=== PATIENT | female | born 2000 | race Caucasian/White ===

== ENCOUNTER 2021-02-26 19:00 | Emergency (ER) | payer MEDICAID, SELFPAY ==
[2021-02-26 19:02] VITALS: BP 123/95; PULSE 87; RESP 14; TEMP 36.6; O2SAT 98; BMI 22.4
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
--- NOTE | 2021-02-26 20:10 | RAD_ITS ---
EXAM: XR STERNUM, 2 OR MORE VIEWS : 1999 CLINICAL INDICATION: trauma TECHNIQUE: Lateral and oblique views of the sternum. This report was created using [employer] report generation technology. COMPARISON: None. FINDINGS: BONES/JOINTS: No acute fracture. No subluxation. No sclerotic or destructive changes observed. SOFT TISSUES: Unremarkable. No soft tissue swelling or gas. No radiopaque foreign body. RAD/Sternum min 2 Views IMPRESSION: Negative sternum. at 2045 Reported and signed by: Trey Martin MD Electronically Signed: Trey Martin MD at 20:44 EDT Tel , Service support ,
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
[2021-02-26] MEDS: Naproxen 250 MG Tablet PO (22:10)
== END 2021-02-26 22:13 | disposition home or self-care (01) ==
PROVIDERS: Emergency Provider Emergency Medicine
DX: S29.9XXA Unspecified injury of thorax, initial encounter (principal); F17.210 Nicotine dependence, cigarettes, uncomplicated; V29.3XXA Motorcycle rider (driver) (passenger) injured in unspecified nontraffic accident, initial encounter
CPT/HCPCS: 71045; 71120; 99284

== ENCOUNTER 2021-05-06 15:17 | Emergency (ER) | payer MEDICAID, SELFPAY ==
[2021-05-06 15:18] VITALS: BP 126/98; PULSE 98; RESP 16; TEMP 36.1; O2SAT 100; BMI 18.1
--- NOTE | 2021-05-06 15:34 | ED.VIS.DENTA ---
HPI History of Present Illness Chief Complaint: Dental Informant: patient Narrative Narrative: Patient complains of dental pain in multiple areas. This has been going off and on for a month but it just keeps getting worse. It keeps her up at night sometimes. No drainage or bad taste. No trouble swallowing. No fevers chills or systemic symptoms. She has not seen anyone for this before. Cold makes it a bit worse. PFSH PFSH Medical History Anxiety Depression Smoker Home Medications naproxen 500 mg PO BID #20 tab 05/06/21 [Rx Last Taken Unknown] penicillin V potassium 500 mg PO 4X/DAY #40 tab 05/06/21 [Rx Last Taken Unknown] Allergy/AdvReac Type Severity Reaction Status Date / Time No Known Allergies Allergy Verified 05/06/21 15:18 Social History Smoking Status: Current every day smoker tobacco type: cigarettes ROS ROS ED Constitutional Constitutional ED: Denies chills or fever(s) Eyes Eyes: Denies change in vision ENT ENT ED: Reports other Details: See history of present illness. ; Denies ear pain, rhinorrhea or sore throat Cardiovascular Cardiovascular: Denies chest pain, palpitations or racing heartbeat Respiratory/Chest Respiratory/Chest: Denies cough or dyspnea Gastrointestinal Gastrointestinal: Denies nausea or vomiting Musculoskeletal Musculoskeletal: Denies neck pain Integumentary Denies abscess or rash Neurologic Neurologic: Denies headache(s) Psychiatric Psychiatric: Reports anxiety and depression Hematologic/Lymphatic Hematologic/Lymphatic: Denies easy bleeding or easy bruising Allergic/Immunologic Allergic/Immunologic ED: Reports other Details: See history of present illness. ; Denies mouth swelling or tongue swelling EXAM Physical Exam Const Vital Signs: 05/06/21 15:18 Temperature 96.9 F L Temperature Source Temporal Pulse Rate 98 Respiratory Rate 16 Blood Pressure 126/98 H Blood Pressure Mean 107 Pulse Ox 100 Oxygen Delivery Method Room Air Patient is tearful. Positive well nourished and well developed General Appearance ED: well developed HEENT HEENT Narrative: No external swelling seen. Lips are normal. Tongue is normal. There is no Ludewig's angina. Uvula is normal. Voice is normal. She has multiple teeth on upper and lower jaws right and left that have cavities. But there is no visible drainable abscess. Negative for trauma or tenderness Eyes PERRL and EOMs intact bilaterally General Eye ED: Negative for scleral icterus Neck no lymphadenopathy and no JVD Resp normal respiratory effort Neuro Sensorium / Orientation: alert Psych mental status grossly normal Mood & Affect: tearful Skin no rashes or lesions noted and no wounds MDM MDM MDM Narrative Medical decision making narrative: Patient is complaining of a lot of pain. I will give her a shot of Toradol. We will get her started on antibiotics. We will add Naprosyn. She is encouraged to call dentist for follow-up. Discharge Plan Triage Chief Complaint: Dental ED Provider: Ganga Maharaj Dx/Rx/DC Orders Clinical Impression: Pain due to dental caries Instructions: ED Dental Pain Prescriptions: New penicillin V potassium 500 MG tablet 500 mg PO 4X/DAY Qty: 40 RF: 0 naproxen 500 MG tablet 500 mg PO BID Qty: 20 RF: 0 Primary Care Provider: Care Physician,No Primary Referrals: Care Physician,No Primary [Primary Care Provider] - Dentist,Your [STAFF PHYSICIAN] - As soon as possible Disposition Disposition: Home, Self Care
[2021-05-06] MEDS: Ketorolac 15 MG/ML Vial IM (15:58)
[2021-05-06] MEDS: Penicillin Vk 250 MG Tablet 500 MG PO (15:59)
[2021-05-06 16:10] VITALS: PULSE 75; RESP 14; O2SAT 98
== END 2021-05-06 16:11 | disposition home or self-care (01) ==
PROVIDERS: Emergency Provider Emergency Medicine
DX: K02.9 Dental caries, unspecified (principal); F17.210 Nicotine dependence, cigarettes, uncomplicated
CPT/HCPCS: 64999; 96372; 99283

== ENCOUNTER 2022-11-19 01:04 | Emergency (ER) | payer MEDICAID, SELFPAY ==
[2022-11-19 01:05] VITALS: BP 97/78; PULSE 101; RESP 16; TEMP 36.6; BMI 19.9
--- NOTE | 2022-11-19 01:19 | EDS_ITS ---
HPI History of Present Illness Chief Complaint: Overdose Informant: patient Narrative Narrative: Patient states she was using methamphetamines recreationally. She injected in her right arm. She states from how she felt she thinks there was fentanyl in it. She used to use opioids but really has not used those for over 2 years. Evidently other people called EMS gave her Narcan and now she is awake and alert. She is not having any complaints at this time. She states she still feels a little bit tired but no trouble breathing or chest pain. She was not trying to hurt herself. PFSH PFSH Medical History Anxiety Depression Smoker Home Medications naproxen 500 mg tablet 500 mg PO BID #20 tabs 05/06/21 [Rx Last Taken Unknown] penicillin V potassium 500 mg tablet 500 mg PO 4X/DAY #40 tabs 05/06/21 [Rx Last Taken Unknown] Allergy/AdvReac Type Severity Reaction Status Date / Time No Known Allergies Allergy Verified 05/06/21 15:18 Social History Smoking Status: Current every day smoker tobacco type: cigarettes ROS ROS ED Constitutional Constitutional ED: Denies fever(s) Eyes Eyes: Denies change in vision ENT ENT ED: Denies sore throat Cardiovascular Cardiovascular: Denies chest pain Respiratory/Chest Respiratory/Chest: Denies cough or dyspnea Gastrointestinal Gastrointestinal: Denies nausea or vomiting Musculoskeletal Musculoskeletal: Denies myalgias Integumentary Denies rash Neurologic Neurologic: Denies headache(s) Psychiatric Psychiatric: Reports anxiety; Denies suicidal ideation or suicidal thoughts Hematologic/Lymphatic Hematologic/Lymphatic: Denies easy bleeding or easy bruising Allergic/Immunologic Allergic/Immunologic ED: Denies urticaria EXAM Physical Exam Narrative Exam Narrative: Patient is spontaneously awake with her eyes open when I walk in the room. HEENT: No sign of trauma Neck is supple. Lungs are clear bilaterally. Saturations are about 99% on room air on the monitor showing no hypoxia. No basilar rales. Heart is regular. Rate about 90. I hear no murmur gallop or rub. Peripheral pulses are normal. Abdomen soft nontender Extremities show multiple tattoos. There are some injection ravi but none of these look infected. Neurologically she is awake alert able to tell me the story. She is a little bit sleepy but spontaneously awake. Const Vital Signs: 11/19/22 01:05 11/19/22 02:44 Temperature 97.9 F Temperature Source Temporal Pulse Rate 101 H 98 Respiratory Rate 16 16 Blood Pressure 97/78 110/67 Blood Pressure Mean 84 81 Pulse Ox 100 Oxygen Delivery Method Room Air Room Air MDM MDM MDM Narrative Medical decision making narrative: Patient had recreational use of drugs. She had to reverse some of the effects by Narcan. She has been awake and alert. Currently she has blood pressure 118/74, heart rate of 86, and O2 saturations 100% on room air showing no hypoxia. Patient is resting quietly but she is easy to awake with voice. I do not think there is any indication for x-rays. She is not hypoxic and there are no rales. I do not think there is any indication for CBC as there is no indication of infection or anemia or bleeding. No indication for metabolic panel. She does not appear to be dehydrated. She is not tachycardic. There is no indication for tox screen as she is very honest about what she was trying to take and what she thinks she actually got. As long as the patient continues to do well she will be released. 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
[2022-11-19 02:44] VITALS: BP 110/67; PULSE 98; RESP 16; O2SAT 100
[2022-11-19 04:48] VITALS: BP 98/61; PULSE 86; RESP 16; O2SAT 98
[2022-11-19 05:38] VITALS: BP 104/64; PULSE 85; RESP 16; O2SAT 100
[2022-11-19 08:16] VITALS: BP 103/86; PULSE 86; RESP 17; O2SAT 97
== END 2022-11-19 08:16 | disposition home or self-care (01) ==
PROVIDERS: Emergency Provider Emergency Medicine; Visit Provider Emergency Medicine
DX: T40.601A Poisoning by unspecified narcotics, accidental (unintentional), initial encounter (principal); F15.10 Other stimulant abuse, uncomplicated; R53.83 Other fatigue; F17.210 Nicotine dependence, cigarettes, uncomplicated
CPT/HCPCS: 99285

== ENCOUNTER 2024-09-24 18:44 | Emergency (ER) | payer MEDICAID, SELFPAY ==
[2024-09-24 18:47] VITALS: BP 119/91; PULSE 84; RESP 16; TEMP 36.8; O2SAT 99; BMI 21.7
--- NOTE | 2024-09-24 19:55 | EKG12_ITS ---
Test Reason : CHEST PAIN Blood Pressure : */* mmHG Vent. Rate : 66 BPM Atrial Rate : 66 BPM P-R Int : 170 ms QRS Dur : 84 ms QT Int : 376 ms P-R-T Axes : 36 45 58 degrees QTcB Int : 394 ms Normal sinus rhythm Normal ECG Confirmed by TONEY KOTHARI ([id number]), greeting card editor DANIE BOBO ([id number]) on 09/28/2024 7:13:58 AM Referred By: Confirmed By: TONEY KOTHARI
--- NOTE | 2024-09-24 19:55 | RAD_ITS ---
PROCEDURE: CHEST PA AND LATERAL REASON FOR EXAM: Chest pain; general malaise. TECHNIQUE: Frontal and lateral views of the chest. COMPARISON: None. FINDINGS: The heart size is normal. The mediastinal contour is unremarkable. The lungs are clear. The bones are unremarkable. RAD/Chest PA and Lateral IMPRESSION: No acute cardiopulmonary abnormalities. Reading Location: [place] [id number]
--- NOTE | 2024-09-24 20:01 | EX.ED.DYSGE1 ---
HPI History of Present Illness Chief Complaint: Chest Pain Detail of Chief Complaint: Generally not feeling well with the chest pain but not her primary complain Informant: patient Onset/Context/Timing Onset: Days Timing: Intermittent Current Severity: Mild Maximum Severity: Mild Narrative Narrative: 24-year-old female no stated past medical history of hypertension. Ab0. Recently delivered at [facility] on 09/03/2024. Ended up having retained products and underwent a D&C on 09/13/2024. Then was on antibiotics for what I believe she thinks was endometritis. She left that hospital AMA due to what she states was an insurance issue. States she has not felt well the last couple days. Has also had chest discomfort. No history of DVT or PE. No hemoptysis. No shortness of breath. No leg pain or swelling. Denies any fever or chills. No dysuria. Prior similar symptoms: No Recent Illness/Hospitalization: Yes [facility] Medical History (Updated 09/24/24 @ 22:[address] Santos Joel MD) Fingertip amputation (spontaneous vaginal delivery) Smoker Anxiety Depression Home Medications ?Medication ?Instructions ?Recorded ?Last Taken ?Type naproxen 500 mg tablet 500 mg PO BID #20 tabs 05/06/21 Unknown Rx penicillin V potassium 500 mg 500 mg PO 4X/DAY #40 tabs 05/06/21 Unknown Rx tablet Allergy/AdvReac Type Severity Reaction Status Date / Time Penicillins (PCN) Allergy Mild Rash Verified 09/24/24 18:52 Surgical History (Updated 09/24/24 @ 20:30 by Irene Hugo) H/O dilation and curettage Social History Smoking Status: Current every day smoker tobacco type: cigarettes and e-cigarettes ROS ROS ED ROS Narrative Not feeling well. Atypical chest pain. Constitutional Constitutional ED: Denies chills or fever(s) Eyes Eyes: Denies blurry vision ENT ENT ED: Denies ear pain Cardiovascular Cardiovascular: Reports chest pain Respiratory/Chest Respiratory/Chest: Denies cough or dyspnea Gastrointestinal Gastrointestinal: Denies abdominal pain, constipation, diarrhea, melena, nausea or vomiting Genitourinary Genitourinary ED: Denies dysuria or hematuria Musculoskeletal Musculoskeletal: Denies arthralgias Integumentary Denies abscess Neurologic Neurologic: Denies headache(s) Psychiatric Psychiatric: Denies anxiety or depression Endocrine Endocrinology: Denies cold intolerance Hematologic/Lymphatic Hematologic/Lymphatic: Reports none Allergic/Immunologic Allergic/Immunologic ED: Denies mouth swelling, tongue swelling or urticaria EXAM Physical Exam Narrative Exam Narrative: 24-year-old female no acute distress. Vital signs stable afebrile. Pulse ox 99% on room air. Clinically looks well. No one else present in the room. No distress. H EENT exam unremarkable. Moist mucous membranes. Neck nontender no lymphadenopathy. Lungs clear to auscultation bilaterally. Heart regular rhythm rate about 85 no murmur. Chest wall and ribs nontender. Abdomen soft nontender. Moving all 4 extremities. Nontender no edema or cords. Normal change management analyst strength. Normal dorsi plantarflexion. Equal symmetrical radial pulses. Calves are nontender without edema or cords. Neurologically she is awake and alert no focal motor deficits. Back nontender. Skin unremarkable other than multiple tattoos. Patient is awake and alert. Answering questions following commands. Const Vital Signs: 09/24/24 18:47 09/24/24 19:55 09/24/24 20:30 Temperature 98.2 F Temperature Source Oral Pulse Rate 84 67 Respiratory Rate 16 18 Respiratory Effort Blood Pressure 119/91 H 116/92 H Blood Pressure Mean 100 100 Pulse Ox 99 96 Oxygen Delivery Method Room Air Room Air Room Air 09/24/24 20:30 09/24/24 20:32 09/24/24 21:00 Temperature 98.8 F 98.1 F Temperature Source Oral Temporal Pulse Rate 67 68 Respiratory Rate 22 H 16 Respiratory Effort Normal Non-Labored Blood Pressure 116/92 H 113/68 Blood Pressure Mean 100 83 Pulse Ox 96 98 Oxygen Delivery Method Room Air 09/24/24 22:00 Temperature Temperature Source Pulse Rate 57 L Respiratory Rate 16 Respiratory Effort Blood Pressure 106/68 Blood Pressure Mean 80 Pulse Ox 97 Oxygen Delivery Method Positive well developed; Negative for obese, cachectic, contractures or unkempt General Appearance ED: well developed and NAD; Negative for unkempt, cachectic, contractures, cyanotic, diaphoretic or pallor Nutritional Appearance: Negative for cachectic or obese HEENT Reports moist mucous membranes Negative for trauma or tenderness Eyes PERRL and EOMs intact bilaterally General Eye ED: Negative for pale conjunctiva, scleral icterus or other Neck no lymphadenopathy, supple and no JVD General: Negative for tenderness Chest Wall inspection of chest normal and palpation of chest normal Resp normal respiratory effort and clear to auscultation bilaterally Effort and Inspection: Negative for retractions Auscultation: Negative for rales, rhonchi, wheezes or diminished lung sounds Cardio regular rate, regular rhythm, S1 normal heart sound, S2 normal heart sound and no murmurs Palpation: Negative for palpable S3 or palpable S4 Rate: Negative for bradycardia or tachycardic Rhythm: Negative for abnormal rhythm GI normal to inspection, nondistended, normoactive bowel sounds, non-tender, non-distended and no masses Palpation: soft; Negative for tender, guarding, mass or rebound tenderness present Back/Spine no CVA tenderness General Back: Negative for CVA tenderness or other Extremity normal to inspection General Extremety ED: Negative for edema or tenderness General Extremity: Negative for edema Neuro oriented x3 and CN's II-XII intact bilaterally Sensorium / Orientation: alert; Negative for lethargic or stuporous Motor Exam: strength 5/5 throughout; Negative for general weakness or strength abnormal Psych mental status grossly normal Appearance: Negative for unkempt Attitude: No agitated Mood & Affect: Negative for depressed, anxious or tearful Skin no rashes or lesions noted, no wounds and skin turgor normal General Skin Exam: Negative for elasticity normal, jaundice or pallor Lesions: No lesion noted Rashes: No rashes noted Trauma: Negative for abrasion Wounds: Negative for wounds noted MDM MDM MDM Narrative Medical decision making narrative: 24-year-old female with complaint just not feeling well. She has a complaint of some chest discomfort. I do not think it is cardiac and other than recent and surgery she has never had a DVT or PE and I think Adsitt less likely. She undergo both cardiac and just general workup. Exam is benign. Repeat exam patient doing well at 10:14 PM. Awaiting CTA. We discussed her lab results. Currently she is resting comfortably. Patient doing well at 10:34 PM. Should be discharged to home. CTA was negative. Clinically I have very low suspicion for PE. History & Record Review Discussion w/independent historian: Patient Lab Data Attestation: I reviewed the patient's lab results. Lab results narrative: CBC shows a white count of 5.8. H&H 11.9 and 36. Platelets 633. D-dimer elevated 0.73. Troponin normal at 6. Electrolytes show gap 7. Normal BUN and creatinine. Glucose 84. Chest x-ray unremarkable. No old labs available for comparison in our computer system. Labs: Laboratory Results - last 24 hr 09/24/24 20:25 WBC 5.8 RBC 3.93 L Hgb 11.9 L Hct 36.6 L MCV 93.1 MCH 30.3 MCHC 32.5 RDW Std Deviation 45.2 H RDW Coeff of Sergio 13.2 Plt Count 633 H MPV 8.8 Immature Gran % (Auto) 0.300 Neut % (Auto) 49.9 Lymph % (Auto) 33.6 [place] % (Auto) 7.4 Eos % (Auto) 7.6 H Baso % (Auto) 1.2 H Absolute Neuts (auto) 2.9 Absolute Lymphs (auto) 1.94 Nucleated RBC % 0 D-Dimer Quant (PE/DVT) 0.73 H* Sodium 139 Potassium 3.8 Chloride 107 Carbon Dioxide 26.0 Anion Gap 7 BUN 16 Creatinine 0.81 Estim Creat Clear Calc 99.39 Est GFR (MDRD) Af Amer 110 Est GFR (MDRD) Non-Af 91 BUN/Creatinine Ratio 19.7 Glucose 84 Calcium 9.6 Troponin I High Sens 6 Radiography Chest X-Ray - ED: 2 View, Read by ED Physician, Read by Radiologist, Heart, Lungs, Mediastinum, Bony Structures, No Acute Disease and Chronic Changes Diagnostic Testing: Clinical Impression(s) from Imaging Studies Chest X-Ray 09/24/24 19:55 IMPRESSION: No acute cardiopulmonary abnormalities. Reading Location: [place] [id number] Chest CTA 09/24/24 21:34 IMPRESSION: No pulmonary embolism. No acute chest abnormalities. One or more dose reduction techniques were used (e.g., Automated exposure control, adjustment of the mA and/or kV according to patient size, use of iterative reconstruction technique). Reading Location: [place] [id number] Chest x-ray, 2 views, AP and lateral, interpreted both by myself and radiologist shows no acute abnormality. Normal cardiac silhouette. Normal mediastinum. Rhythm Strip Rhythm Strip: Sinus Rhythm Rate: 66 Ectopy: None EKG Initial EKG: Attestation: I personally reviewed and interpreted this EKG as follows: Interpretation: Sinus Rhythm and No Acute Injury Pattern Comments: Normal normal sinus rhythm rate of 66 no acute signs of ID nor ischemia nor S1Q3T3. Discharge Plan Triage Chief Complaint: Chest Pain ED Provider: Santos Joel Dx/Rx/DC Orders Clinical Impression: Chest pain, Malaise, anemia Instructions: ED Chest Pain, Uncertain Cause Prescriptions: No Action penicillin V potassium 500 MG tablet 500 mg PO 4X/DAY Qty: 40 0RF naproxen 500 MG tablet 500 mg PO BID Qty: 20 0RF Primary Care Provider: Care Physician,No Primary Referrals: Nola Mathis MD [Med Staff - Active Staff] - 1 Week if not improving Care Physician,No Primary [Primary Care Provider] - Activity Restrictions/Additional Instructions: Your tests look good. You are only mildly anemic which is normal after . That blood count should improve. Follow-up with local primary care physician as needed. Return if worse. Print Language: Syriac Disposition Disposition: Home, Self Care
--- NOTE | 2024-09-24 20:18 | CM.ED ---
Social work Reason for referral: no PCP Referral source: case find This SW identified patient's lack of PCP and need for resources. This SW entered patient's room, introducing self and role at [facility]. Patient accepted SW visit, confirming lack of PCP. Patient stated moving to [place] 2-3 weeks ago after previously living in [place]. Patient accepted resources of [facility] Provider Directory and Cornelia Rico information. Through further conversation, patient expressed giving on 09/03/24 to a baby named Ky. Patient stated [facility] currently having custody of Ky due to patient's substance use. Patient stated being 1 month sober and being proud of self for that. Patient stated being thankful for Ky being able to live with patient's sister, Jennifer, currently while patient gets back on track. Patient stated getting to see Ky each Saturday. Patient stated desiring resources to help patient in recovery. Active listening and supportive presence provided, as well as the following resources: [facility], counseling and psychiatry, [facility], Cornelia Rico and [facility] Provider Directory, and [facility] card. Sofia Booth, GEAR CODING MACHINE OPERATOR, INTELLIGENCE GROUP SUPERVISOR
[2024-09-24 20:29] LABS: Absolute Lymphocyte Count 1.94 X10^3/uL (0.83-4.51); Absolute Neutrophil Count 2.9 X10^3/uL (2.0-7.7); Basophil# 0.07 X10^3/uL; Basophil% 1.2 % (0-1); Eosinophil# 0.44 X10^3/uL; Eosinophils% 7.6 % (0-5); Hematocrit 36.6 % (37-47); Hemoglobin 11.9 g/dL (12.0-15.0); Lymphocyte # 1.94 X10^3/ul (0.83-4.51); Lymphocyte % 33.6 % (19-41); Mean Corp Hgb Conc 32.5 g/dL (32-36); Mean Corpuscular Hgb 30.3 pg (27.0-32.0); Mean Corpuscular Volume 93.1 fL (81-99); Mean Platelet Vol. 8.8 fl (6.2-12.0); Monocyte# 0.43 X10^3/uL; Monocyte% 7.4 % (0-10); NRBC Flagged by Analyzer 0 % (0-5); Neutrophil # 2.88 X10^3/uL (2.7-7.7); Neutrophil % 49.9 % (47-70); Platelet Count 633 K/mm3 (150-450); RBC Distribution Width CV 13.2 % (11.6-14.6); RBC Distribution Width SD 45.2 fl (35.1-43.9); Red Blood Count 3.93 M/mm3 (4.2-5.4); White Blood Count 5.8 K/mm3 (4.4-11.0)
[2024-09-24 20:30] VITALS: BP 116/92; PULSE 67; RESP 18; RESP 22; TEMP 37.1; O2SAT 96
[2024-09-24 20:45] LABS: D-Dimer Quantitative (DVT/PE) 0.73 FEU/ug/m (0.27-0.49)
[2024-09-24 20:48] LABS: Anion Gap 7 (5-15); BUN 16 mg/dL (7-18); BUN/Creat Ratio 19.7 RATIO (10-20); Calcium,Total 9.6 mg/dL (8.5-10.1); Chloride 107 mmol/L (98-107); Creatinine, Serum 0.81 mg/dL (0.55-1.02); EST Glomerular Filtration Rate 91 mL/min (>60); Est Glom Filt Rate - Afr Amer 110 mL/min (>60); Estimated Creatinine Clearance 99.39 ml/min; Glucose 84 mg/dL (74-106); Potassium 3.8 mmol/L (3.5-5.1); Sodium Level 139 mmol/L (136-145); Troponin-I HS (w/2H Reflex) 6 pg/mL (3.0-54.0)
[2024-09-24 21:00] VITALS: BP 113/68; PULSE 68; RESP 16; TEMP 36.7; O2SAT 98
--- NOTE | 2024-09-24 21:34 | CT_ITS ---
PROCEDURE: CTA CHEST W/WO CONTRAST REASON FOR EXAM: Chest pain and general malaise. TECHNIQUE: CTA imaging of the chest with intravenous contrast. 3D reconstructions. CONTRAST: 98 cc of Isovue 370. COMPARISON: None. FINDINGS: Hardware: None. Lymph nodes: No mediastinal hilar or axillary lymphadenopathy. Heart: Normal heart size. No pericardial effusion. RV/LV Diameter Ratio: N/A Thoracic Aorta: No thoracic aortic aneurysm or dissection. Pulmonary Vessels: No evidence of acute pulmonary emboli through the major subsegmental branches. Most Proximal Level of Embolus (if embolus present): N/A Lungs and Airways: The lungs are normally expanded and clear. Pleura: No pleural effusion. No pneumothorax. Upper Abdomen: Visualized portions of the upper abdominal viscera are unremarkable. Bones: Bone windows are unremarkable. CT/CTA Chest W/WO Contrast IMPRESSION: No pulmonary embolism. No acute chest abnormalities. One or more dose reduction techniques were used (e.g., Automated exposure contr ol, adjustment of the mA and/or kV according to patient size, use of iterative reconstruction technique). Reading Location: [place] [id number]
[2024-09-24 22:00] VITALS: BP 106/68; PULSE 57; RESP 16; O2SAT 97
[2024-09-24 22:27] LABS: Reflex Troponin-HS? (from REC) Y
[2024-09-24 22:55] VITALS: BP 128/72; PULSE 75; RESP 18; TEMP 36.6; O2SAT 98
== END 2024-09-24 22:56 | disposition home or self-care (01) ==
PROVIDERS: Emergency Provider Emergency Medicine; Visit Provider Emergency Medicine
DX: O99.893 Other specified diseases and conditions complicating puerperium (principal); R07.89 Other chest pain; R53.81 Other malaise; O99.03 Anemia complicating the puerperium; O99.335 Smoking (tobacco) complicating the puerperium; F17.210 Nicotine dependence, cigarettes, uncomplicated; F17.290 Nicotine dependence, other tobacco product, uncomplicated; Z88.0 Allergy status to penicillin
CPT/HCPCS: 71046; 71275; 80048; 84484; 85025; 85379; 93005; 99283; Q9967; A4216

== ENCOUNTER 2024-11-22 21:10 | Emergency (ER) | payer MEDICAID, SELFPAY ==
[2024-11-22 21:10] VITALS: BP 116/75; PULSE 72; RESP 17; TEMP 36.7; O2SAT 99; BMI 21.5
--- NOTE | 2024-11-22 22:37 | EDS_ITS ---
HPI History of Present Illness Chief Complaint: Dental Informant: patient Narrative Narrative: Patient is a 24-year-old female with past medical history of anxiety and depression. She states she also has a history of bad teeth. She states she is scheduled to have them all pulled. She states she was seen at a different facility and placed on Keflex roughly 3 days ago secondary to right lower face/dental pain. She states has been taking the medication as directed but she has noticed increasing pain and swelling and has concern for potential abscess. Secondary to this she presents for evaluation [facility] Medical History (Updated 11/23/24 @ 00:[address] Isaiah Gutierrez DO) Fingertip amputation (spontaneous vaginal delivery) Smoker Anxiety Depression Home Medications ?Medication ?Instructions ?Recorded ?Last Taken ?Type naproxen 500 mg tablet 500 mg PO BID #20 tabs 05/06 Unknown Rx penicillin V potassium 500 mg 500 mg PO 4X/DAY #40 tab s 05/06/21 Unknown Rx tablet clindamycin HCl 300 mg capsule 300 mg PO 4X/DAY 10 day s #40 caps 11/22/24 Unknown Rx oxycodone-acetaminophen 5 mg-325 1 tab PO Q6H PRN pain 3 days #12 11/22/24 Unknown Rx mg tablet (Percocet) tabs Allergy/AdvReac Type Severity Reaction Status Date / Time Penicillins (PCN) Allergy Mild Rash Verified 11/22/24 21:13 Surgical History H/O dilation and curettage Social History Smoking Status: Current every day smoker tobacco type: cigarettes and e- cigarettes ROS ROS ED Constitutional Constitutional ED: Denies chills or fever(s) ENT ENT ED: Reports other Details: Positive dental pain and facial swelling ; Denies sore throat Cardiovascular Cardiovascular: Denies chest pain Respiratory/Chest Respiratory/Chest: Denies cough or dyspnea Gastrointestinal Gastrointestinal: Denies abdominal pain, diarrhea, nausea or vomiting Genitourinary Genitourinary ED: Denies dysuria Musculoskeletal Musculoskeletal: Denies myalgias or neck pain Integumentary Denies rash Neurologic Neurologic: Denies headache(s) Hematologic/Lymphatic Hematologic/Lymphatic: Denies easy bleeding or easy bruising Allergic/Immunologic Allergic/Immunologic ED: Denies mouth swelling or tongue swelling EXAM Physical Exam Const Vital Signs: 11/22/24 21:10 Temperature 98.1 F Temperature Source Temporal Pulse Rate 72 Respiratory Rate 17 Blood Pressure 116/75 Blood Pressure Mean 88 Pulse Ox 99 Oxygen Delivery Method Room Air Positive well nourished and well developed General Appearance ED: well developed; Negative for pallor HEENT HEENT Narrative: No tongue or lip swelling; no oral lesions no airway edema or compromise Patient has multiple dental caries noted with soft tissue swelling along the right gingiva concerning for developing dental abscess No signs of ANUG Eyes PERRL and EOMs intact bilaterally Neck supple Neck Narrative: No brawny edema in the submental space to suggest Kendall's angina Resp normal respiratory effort and clear to auscultation bilaterally Cardio regular rate and regular rhythm Extremity normal to inspection Neuro oriented x3, CN's II-XII intact bilaterally and no sensory deficits noted Sensorium / Orientation: alert Motor Exam: strength 5/5 throughout Psych mental status grossly normal Skin no rashes or lesions noted Skin Narrative: Soft tissue swelling along the right jaw as documented above without overlying erythema or warmth to suggest cellulitis General Skin Exam: Negative for jaundice or pallor MDM MDM MDM Narrative Medical decision making narrative: Patient arrived to the ER with stable vitals. She did not have any physical exam findings concerning for ANUG or Kendall angina and there is no respiratory distress or airway compromise so I felt no need for imaging or laboratory study. Her physical exam does suggest developing abscess. Therefore she was given a dental block as documented below and an incision and drainage was performed. As she is only on Keflex which typically is not covering dental microbes she will be changed to clindamycin. However as she does not have signs of systemic infection or airway compromise there is no need for continued evaluation in the ER and she is otherwise safe for discharge Patient was given a right inferior alveolar dental block using 1.5 mL of 2% lidocaine with epinephrine and 1.5 mL of 0.5% Marcaine. Following this a #11 blade scalpel was used to make a 1 cm incision in the right lower gingiva over top the area of fluctuant. There was expression of blood and small amount of purulent material. Patient tolerated the procedure well without complication History & Record Review Discussion w/independent historian: Patient Discharge Plan Triage Chief Complaint: Dental ED Provider: Isaiah Gutierrez Dx/Rx/DC Orders Clinical Impression: Dental abscess, Anxiety and depression, Tobacco abuse Instructions: Dental Abscess Prescriptions: New clindamycin HCl 300 mg capsule 300 mg PO 4X/DAY 10 Days Qty: 40 0RF oxycodone-acetaminophen [Percocet] 5-325 mg tablet 1 tab PO Q6H PRN (Reason: pain) 3 Days Qty: 12 0RF No Action penicillin V potassium 500 MG tablet 500 mg PO 4X/DAY Qty: 40 0RF naproxen 500 MG tablet 500 mg PO BID Qty: 20 0RF Primary Care Provider: Care Physician,No Primary Referrals: Care Physician,No Primary [Primary Care Provider] - Activity Restrictions/Additional Instructions: Please follow-up with your dentist for further evaluation. Stop the Keflex/cephalexin and begin the clindamycin for improved dental coverage. Return to the ER should you have any further concerns Print Language: Panamanian Disposition Disposition: Home, Self Care Discharge Date/Time: 11/22/24 22:49
[2024-11-22] MEDS: Clindamycin HCl 150 MG Capsule 300 MG PO (22:43)
--- NOTE | 2024-11-22 22:48 | ED.RN ---
pt refused pain medication, stating, I need to talk to my PO before I take that
== END 2024-11-22 22:49 | disposition home or self-care (01) ==
PROVIDERS: Emergency Provider Emergency Medicine; Visit Provider Emergency Medicine
DX: K04.7 Periapical abscess without sinus (principal); F32.A Depression, unspecified; F17.210 Nicotine dependence, cigarettes, uncomplicated; F41.9 Anxiety disorder, unspecified; F17.290 Nicotine dependence, other tobacco product, uncomplicated
CPT/HCPCS: 41800; 99282

== ENCOUNTER 2024-12-30 14:58 | Emergency (ER) | payer MEDICAID, SELFPAY ==
[2024-12-30 14:59] VITALS: BP 123/79; PULSE 85; RESP 18; TEMP 37.1; O2SAT 100; BMI 20.2
--- NOTE | 2024-12-30 15:10 | EDS_ITS ---
HPI HPI - URI History of Present Illness Chief Complaint: Cold Sx Detail of Chief Complaint: Upper respiratory tract infectious symptoms Informant: patient Onset/Context/Timing Onset: Yesterday Context: Sudden Onset Timing: Continuous and Waxes and wanes Quality: Rhinorrhea, congestion, sore throat, productive cough and aches Location: Generalized Current Severity: Mild Maximum Severity: Moderate Worsened by: Not Worsened By Swallowing, Eating Solids or Drinking Liquids Relieved by: Not Relieved By Tylenol or NSAIDs Associated Symptoms Associated Symptoms: Positive for Nasal Congestion, Headache, Myalgias and Productive Cough (Slightly yellow-tinged); Negative for Sinus Pressure, Nausea, Vomiting, Diarrhea, Shortness of Breath, Chest Pain, Nonproductive cough or Hemoptysis Narrative Narrative: Patient is a 24-year-old female. She does vape. She states multiple coworkers are sick and what was diagnosed with bronchitis. She denies fever or chills. She does complain of headache. Denies neck pain or neck stiffness. Denies photophobia. Denies ear pain. She does endorse rhinorrhea, congestion postnasal drainage sore throat. Cough is productive of some slightly yellow- tinged sputum. Her symptoms started yesterday. She denies abdominal pain. She denies nausea, vomiting or diarrhea. She denies joint swelling. She denies rash. Prior similar symptoms: Yes Recent Illness/Hospitalization: No ROS ROS ED Constitutional Constitutional ED: Denies chills, fever(s), subjective or sweats Eyes Eyes: Denies blurry vision, change in vision or diplopia ENT ENT ED: Reports rhinorrhea and sore throat; Denies ear pain Cardiovascular Cardiovascular: Denies chest pain, orthopnea, palpitations, paroxysmal nocturnal dyspnea or racing heartbeat Respiratory/Chest Respiratory/Chest: Reports cough and sputum; Denies dyspnea, dyspnea on exertion, orthopnea or paroxysmal nocturnal dyspnea Gastrointestinal Gastrointestinal: Denies abdominal pain, diarrhea, nausea or vomiting Musculoskeletal Musculoskeletal: Reports arthralgias and myalgias Integumentary Denies rash Neurologic Neurologic: Reports headache(s); Denies weakness [facility] Medical History Fingertip amputation (spontaneous vaginal delivery) Smoker Anxiety Depression Home Medications ?Medication ?Instructions ?Recorded ?Last Taken ?Type naproxen 500 mg tablet 500 mg PO BID #20 tabs 05/06 Unknown Rx penicillin V potassium 500 mg 500 mg PO 4X/DAY #40 tab s 05/06/21 Unknown Rx tablet clindamycin HCl 300 mg capsule 300 mg PO 4X/DAY 10 day s #40 caps 11/22/24 Unknown Rx oxycodone-acetaminophen 5 mg-325 1 tab PO Q6H PRN pain 3 days #12 11/22/24 Unknown Rx mg tablet (Percocet) tabs Allergy/AdvReac Type Severity Reaction Status Date / Time Penicillins (PCN) Allergy Mild Rash Verified 12/30/24 14:59 Surgical History H/O dilation and curettage Social History Smoking Status: Current every day smoker tobacco type: cigarettes and e- cigarettes EXAM Physical Exam Const Vital Signs: 12/30/24 14:59 Temperature 98.7 F Temperature Source Oral Pulse Rate 85 Respiratory Rate 18 Blood Pressure 123/79 H Blood Pressure Mean 93 Pulse Ox 100 Oxygen Delivery Method Room Air Positive well nourished and well developed Constitutional Narrative: Patient's vitals are noted and unremarkable. General Appearance ED: well developed HEENT Reports moist mucous membranes HEENT Narrative: Nares patent with slight clear drainage. Ears normal. External auditory canal has some cerumen. TMs are normal. normocephalic Face and Sinus: Negative for sinus tenderness Throat: posterior oropharynx normal Eyes PERRL and EOMs intact bilaterally General Eye ED: Negative for pale conjunctiva or scleral icterus Neck no lymphadenopathy, supple, no meningeal signs and no JVD Neck Narrative: There is no cervical lymphadenopathy. There is no stridor. Trachea is midline. Resp normal respiratory effort and clear to auscultation bilaterally Effort and Inspection: Negative for retractions or pain with movement Cardio S1 normal heart sound, S2 normal heart sound and no murmurs Rate: regular rate Rhythm: regular rhythm GI non-tender Palpation: soft Extremity normal to inspection and full ROM General Extremety ED: Negative for cyanosis General Extremity: Negative for cyanosis Neuro oriented x3 and CN's II-XII intact bilaterally Sensorium / Orientation: alert Psych Mood & Affect: depressed Skin General Skin Exam: Negative for jaundice Lesions: no lesions Rashes: no rashes MDM MDM MDM Narrative Medical decision making narrative: Patient presents with upper respiratory tract infection symptoms. Since there are no abnormal auditory findings vital signs are normal x-ray is not indicated per literature. Patient's Centor score is 0 therefore rapid strep was not obtained. Patient was informed she may be sick for another 7 to 10 days. She was told because she vapes she may have a cough for 4 to 6 weeks. She asked that if I would write a note to states she was here. History & Record Review Additional record(s) reviewed:: Prior ED visit (November 2024 for anxiety depression, September of this year for chest pain. 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.) and Prior labs Discharge Plan Triage Chief Complaint: Cold Sx ED Provider: Enrique Dorantes Dx/Rx/DC Orders Clinical Impression: Upper respiratory infection with cough and congestion, Electronic cigarette use Instructions: ED URI, Viral, No Abx (Adult) Prescriptions: No Action penicillin V potassium 500 MG tablet 500 mg PO 4X/DAY Qty: 40 0RF naproxen 500 MG tablet 500 mg PO BID Qty: 20 0RF clindamycin HCl 300 mg capsule 300 mg PO 4X/DAY 10 Days Qty: 40 0RF oxycodone-acetaminophen [Percocet] 5-325 mg tablet 1 tab PO Q6H PRN (Reason: pain) 3 Days Qty: 12 0RF Stand Alone Forms: ED Work / School Excuse Primary Care Provider: Care Physician,No Primary Referrals: Care Physician,No Primary [Primary Care Provider] - Activity Restrictions/Additional Instructions: 1. You may be ill for another 7 to 10 days. 2. You may feel worse over the next day or 2 before you feel better. 3. Because you use electronic cigarettes you may have a cough for 4 to 6 weeks. Print Language: Croatian Disposition Disposition: Home, Self Care
[2024-12-30 15:24] VITALS: BP 123/79; PULSE 85; RESP 18; TEMP 37.1; O2SAT 100
== END 2024-12-30 15:28 | disposition home or self-care (01) ==
LOC: ED 15:18
PROVIDERS: Emergency Provider Emergency Medicine; Referring Provider Emergency Medicine; Visit Provider Emergency Medicine
DX: J06.9 Acute upper respiratory infection, unspecified (principal); F17.290 Nicotine dependence, other tobacco product, uncomplicated; F17.210 Nicotine dependence, cigarettes, uncomplicated
CPT/HCPCS: 99282

== ENCOUNTER 2025-03-18 11:52 | Emergency (ER) | payer MEDICAID, SELFPAY ==
[2025-03-18 11:53] VITALS: BP 115/82; PULSE 102; RESP 17; TEMP 36.9; O2SAT 100; BMI 19.5
--- NOTE | 2025-03-18 12:15 | RAD_ITS ---
PROCEDURE: CHEST 1 VIEW (PORTABLE) 03/18/2025 REASON FOR EXAM: SHORTNESS OF BREATH TECHNIQUE: Frontal view of the chest. COMPARISON: Prior study dated September 24, 2024 FINDINGS: Hardware: EKG electrodes are seen. Heart: The heart size is normal. Lungs: Hyperinflation. No acute process is seen. Bones: Minimal dextroscoliosis. Other: RAD/Chest 1 View (Portable) IMPRESSION: No Acute Findings. Hyperinflation. Reading Location: [facility] [id number]
--- NOTE | 2025-03-18 12:27 | US_ITS ---
PROCEDURE: TRANSVAGINAL W/PREG US N/A REASON FOR EXAM: RULE OUT ECTOPIC TECHNIQUE: TRANSVAGINAL W/PREG US COMPARISON: None FINDINGS: Comments: Number of Gestational Sacs: 1 Gestational Sac Shape: Normal Number of Fetuses: 1 Heart Rate: 167 beats per minute (average) Yolk Sac: Present and unremarkable. Placenta: Presently not well-visualized Amniotic Fluid Volume: Subjectively normal for gestational age. Uterine Abnormalities: Maternal uterus is unremarkable. Ovaries / Adnexa: Both maternal ovaries are visualized and unremarkable. DIMENSIONS: Parameter Measurement / EGA [place] Rump Length: 2.1 cm/8 weeks and 5 days Gestational Sac: 2.9 mm/8 weeks and 0 days Yolk Sac: 4.3 mm/ ESTIMATED GESTATIONAL AGE: By Ultrasound: 8 weeks and 3 days By LMP: 9 weeks and 0 days ESTIMATED DATE OF DELIVERY: By Ultrasound: October 28, 2024 By LMP: October 21, 2024 US/Transvaginal w/Preg US IMPRESSION: UNREMARKABLE FIRST TRIMESTER ULTRASOUND. Single live intrauterine gestation with a mean gestational age of 8 weeks and 3 days. No evidence of ectopic . Reading Location: [place] [id number]
--- NOTE | 2025-03-18 12:30 | EDS_ITS ---
HPI History of Present Illness Chief Complaint: Chest Pain Narrative Narrative: 25-year-old female G2, P1 approximately 8 weeks gestational age presents emergency department for complaint of shortness of breath. Patient states that she has been having shortness of breath and chest tightness over the past couple days. Patient states she has been having a lot of anxiety and is not due to see her OB until 2 weeks from now. States that she has had ultrasounds in the past in the ED when she has had abdominal pain previously but she is unsure if they were able to completely rule out ectopic . States that she has some mild pain but nothing out of the ordinary that has been new since this . Denies any fevers, cough, congestion, cardiac issues, bleeding, discharge, history of clots. PFSH PFSH Medical History Fingertip amputation (spontaneous vaginal delivery) Smoker Anxiety Depression Home Medications ?Medication ?Instructions ?Recorded ?Last Taken ?Type sertraline 50 mg tablet 50 mg PO Q24H 03/18/25 Unkno wn History Allergy/AdvReac Type Severity Reaction Status Date / Time Penicillins (PCN) Allergy Mild Rash Verified 03/18/25 11:55 Surgical History H/O dilation and curettage Social History (Updated 03/18/25 @ 13:32 by Stephanie Lai) household members: children housing: house Smoking Status: Current every day smoker tobacco type: cigarettes and e- cigarettes EXAM Physical Exam Const Vital Signs: 03/18/25 11:53 03/18/25 13:31 Temperature 98.4 F Temperature Source Oral Pulse Rate 102 H 83 Respiratory Rate 17 18 Blood Pressure 115/82 H 109/69 Blood Pressure Mean 93 82 Pulse Ox 100 100 Oxygen Delivery Method Room Air Positive well nourished HEENT Reports moist mucous membranes Eyes PERRL and EOMs intact bilaterally Resp normal respiratory effort and clear to auscultation bilaterally Effort and Inspection: Negative for retractions Cardio regular rhythm and no murmurs Rate: tachycardic GI non-tender Inspection: Negative for abdominal distention Extremity General Extremety ED: Negative for edema General Extremity: Negative for edema Neuro oriented x3 Sensorium / Orientation: alert MDM MDM MDM Narrative Medical decision making narrative: 25-year-old female G2, P1 approximately 8 weeks gestational age presents emergency department for complaint of shortness of breath. Patient states that she has been having shortness of breath and chest tightness over the past couple days. Patient states she has been having a lot of anxiety and is not due to see her OB until 2 weeks from now. States that she has had ultrasounds in the past in the ED when she has had abdominal pain previously but she is unsure if they were able to completely rule out ectopic . States that she has some mild pain but nothing out of the ordinary that has been new since this . Denies any fevers, cough, congestion, cardiac issues, bleeding, discharge, history of clots. Per chart review patient was seen at [place] [facility] on 02/20/2025 for concern of possible ectopic had transvaginal ultrasound at the time that they were unable to confirm gestational sac and they did see a mass around the ovary. Patient left AMA at that time after knowing they could not completely rule out ectopic . Patient is tachycardic in the low 100s in the emergency department. Not requiring any oxygen. I discussed with patient that I would feel better about obtaining transvaginal ultrasound to confirm an IUP as she may have just had her ultrasound too early in and we will trend the beta-hCG last being 4600 on 02/20. I will obtain D-dimer to rule out pulmonary embolism. Lungs clear to auscultation. Heart sounds normal though she is tachycardic. Pending lab results and imaging. Handoff given to Dr. To pending labs and imaging for further dispo. History & Record Review Additional record(s) reviewed:: Prior ED visit (Visit on 02/20/2025 at [facility] for abdominal pain and new . Patient had transvaginal ultrasound at that time to rule out ectopic . They were unable to completly r/o ectopic and she left AMA ) Lab Data Attestation: I reviewed the patient's lab results. Lab results narrative: Leukocytosis, likely 2/2 physiologic as patient has had no infectious symptoms Labs: Laboratory Results - last 24 hr 03/18/25 13:00 WBC 14.4 H RBC 4.16 L Hgb 11.5 L Hct 35.8 L MCV 86.1 MCH 27.6 MCHC 32.1 RDW Std Deviation 50.0 H RDW Coeff of Sergio 16.0 H Plt Count 312 MPV 10.2 Immature Gran % (Auto) 0.500 Neut % (Auto) 79.8 H Lymph % (Auto) 8.0 L [place] % (Auto) 7.7 Eos % (Auto) 3.7 Baso % (Auto) 0.3 Absolute Neuts (auto) 11.5 H Absolute Lymphs (auto) 1.15 Nucleated RBC % 0 EKG Initial EKG: Attestation: I personally reviewed and interpreted this EKG as follows: Comments: EKG showing normal sinus rhythm, ventricular 87, MA 150, QTc 413. Normal axis. No signs of ST elevation depressions or T wave inversions consistent with ischemia Discharge Plan Triage Chief Complaint: Chest Pain ED Provider: Una Faustin Dx/Rx/DC Orders Prescriptions: No Action sertraline 50 mg tablet 50 mg PO Q24H Primary Care Provider: Care Physician,No Primary Referrals: Care Physician,No Primary [Primary Care Provider] - Print Language: Greek
[2025-03-18 13:07] LABS: Hematocrit 35.8 % (37-47); Hemoglobin 11.5 g/dL (12.0-15.0); Immature Granulocytes Count 0.070 X10^3/uL (0.0-0.0); Mean Corp Hgb Conc 32.1 g/dL (32-36); Mean Corpuscular Volume 86.1 fL (81-99); Mean Platelet Vol. 10.2 fl (6.2-12.0); NRBC Flagged by Analyzer 0 % (0-5); Platelet Count 312 K/mm3 (150-450); RBC Distribution Width CV 16.0 % (11.6-14.6); RBC Distribution Width SD 50.0 fl (35.1-43.9); Red Blood Count 4.16 M/mm3 (4.2-5.4); White Blood Count 14.4 K/mm3 (4.4-11.0)
[2025-03-18 13:31] VITALS: BP 109/69; PULSE 83; RESP 18; O2SAT 100
[2025-03-18 14:05] LABS: hCG Titer Quant., Serum 111933 mIU/mL (<9 non-preg)
[2025-03-18 14:09] LABS: D-Dimer Quantitative (DVT/PE) 0.59 FEU/ug/m (0.27-0.49)
[2025-03-18 14:20] VITALS: PULSE 86; RESP 12; O2SAT 99
[2025-03-18 15:00] VITALS: PULSE 75; RESP 15; O2SAT 98
[2025-03-18 15:06] LABS: AST(SGOT) 20 U/L (<=31); Alanine Aminotransfer ALT/SGPT 13 U/L (<=34); Albumin, Serum 4.2 g/dL (3.5-5.0); Alkaline Phosphatase 83 U/L (35-104); Anion Gap 13 (5-15); BUN 6 mg/dL (4-19); BUN/Creat Ratio 9.3 RATIO (10-20); Calcium,Total 9.0 mg/dL (7.6-11.0); Carbon Dioxide 19.5 mmol/L (21.0-32.0); Chloride 102 mmol/L (98-108); Estimated Creatinine Clearance 113.64 ml/min (50-250); Globulin 3.0 g/dL (2.2-4.2); Glucose 89 mg/dL (70-99); Potassium 3.7 mmol/L (3.3-5.1); Troponin T High Sensitivity < 6 ng/L (<=14)
[2025-03-18 15:52] VITALS: BP 104/64; PULSE 72; RESP 12; TEMP 36.7; O2SAT 100
[2025-03-18 16:05] LABS: Troponin T High Sens 2 HR < 6 ng/L (<=14)
== END 2025-03-18 15:53 | disposition home or self-care (01) ==
PROVIDERS: Student in an Organized Health Care Education/Training Program; Emergency Provider Student in an Organized Health Care Education/Training Program; Visit Provider Student in an Organized Health Care Education/Training Program
DX: O26.891 Other specified pregnancy related conditions, first trimester (principal); R06.02 Shortness of breath; R07.89 Other chest pain; O99.331 Smoking (tobacco) complicating pregnancy, first trimester; F17.210 Nicotine dependence, cigarettes, uncomplicated; F17.290 Nicotine dependence, other tobacco product, uncomplicated; Z3A.08 8 weeks gestation of pregnancy
CPT/HCPCS: 36415; 71045; 76817; 80053; 84484; 84702; 85025; 85379; 93005; 99282; A4216